=== PATIENT | male | born 1940 | race Caucasian/White ===

== ENCOUNTER 2017-03-10 09:15 | Emergency (ER) | payer MEDICARE ==
[~2017-03-10] VITALS: Ht 170.2 cm; Wt 108.0 kg
[2017-03-10 09:21] VITALS: BP 176/98; PULSE 103; RESP 16; TEMP 99.4; O2SAT 95
[2017-03-10] MEDS ORDERED: DILTIAZEM HCL 25 MG/5 ML VIAL IV ONE (10:00)
[2017-03-10] MEDS ORDERED: BUPR75TA PO (10:04)
[2017-03-10] MEDS ORDERED: RANI300T PO (10:04)
[2017-03-10] MEDS ORDERED: GLIP10TA6 PO (10:04)
[2017-03-10] MEDS ORDERED: NOVO7030P2 SQ (10:04)
[2017-03-10] MEDS ORDERED: DILT90TA PO (10:04)
[2017-03-10] MEDS ORDERED: METF1000 PO (10:04)
[2017-03-10] MEDS ORDERED: FLUT50SP EACH NARE (10:04)
[2017-03-10] MEDS ORDERED: CITA20TA4 PO (10:04)
[2017-03-10] MEDS ORDERED: TIMO0.5S30 EACH EYE (10:04)
[2017-03-10] MEDS ORDERED: LISI-515 PO (10:04)
[2017-03-10] MEDS ORDERED: ATOR20TA15 PO (10:04)
[2017-03-10] MEDS ORDERED: WARF-20 PO (10:04)
--- NOTE | 2017-03-10 10:04 | PD ---
HPI Chief Complaint: General Weakness Time Seen by Provider: 09:44 Travel History International Travel<30 days: No Contact w/Intl Traveler<30days: No Traveled to known affect area: No History of Present Illness HPI This patient is vacationing from [place]. He has general malaise and just doesn 't feel well. He has chronic A. fib on Coumadin. He forgot his medications when he came to [place]. He had them overnight delivered and he has now but he was without his medications for 2 or 3 days. He is insulin-dependent diabetic. He presents with A. fib with RVR. He had a syncopal episode a few days ago. He did not have head injury. He denies bleeding. He did have a tick bite and [place] to his left lower quadrant. The area has become red and inflamed. It was moderately severe. No alleviating factors. Symptoms are exacerbated by his medication noncompliance PFSH Past Medical History Hx Anticoagulant Therapy: Yes (WARFARIN) Cardiovascular Problems: Yes (A-FIB) Diabetes: Yes Social History Alcohol Use: No Tobacco Use: No Substance Use: No Allergies-Medications (Allergen,Severity, Reaction): Coded Allergies: No Known Allergies (Unverified , 03/10/17) Reported Meds & Prescriptions Reported Meds & Active Scripts Active Doxycycline Hyclate 100 Mg Cap 100 Mg PO BID Zofran (Ondansetron HCl) 4 Mg Tab 4 Mg PO Q6HR PRN Reported Bupropion HCl 75 Mg Tab 150 Mg PO DAILY Atorvastatin (Atorvastatin Calcium) 20 Mg Tab 20 Mg PO HS Ranitidine (Ranitidine HCl) 300 Mg Tab 300 Mg PO HS Warfarin 4 Mg Tab 4 Mg PO DAILY Timolol Opth Drops 0.5 % Soln 1 Drop EACH EYE BID Fluticasone Nasal [place] 50 Mcg/Act Naspr 50 Mcg EACH NARE BID 50 mcg/spray Novolin 70-30 Inj (Insulin Human Isoph/Insulin Regular) 1,000 Unit/10 Ml Vial 16 Units SQ BID Glipizide 10 Mg Tab 20 Mg PO BIDAC Take 30 minutes before a meal Lisinopril 20 Mg Tab 20 Mg PO DAILY Metformin (Metformin HCl) 1,000 Mg Tab 1,000 Mg PO BIDPC Diltiazem (Diltiazem HCl) 90 Mg Tab 180 Mg PO DAILY Citalopram (Citalopram Hydrobromide) 20 Mg Tab 20 Mg PO DAILY Review of Systems General / Constitutional: No: Fever Eyes: No: Visual changes HENT: Positive: Lightheadedness, No: Headaches Cardiovascular: Positive: Irregular Rhythm, Tachycardia, No: Chest Pain or Discomfort Respiratory: No: Shortness of Breath Gastrointestinal: Positive: Nausea, No: Abdominal Pain Genitourinary: No: Dysuria Musculoskeletal: Positive: Weakness, No: Pain Skin: No Rash Neurologic: Positive: Weakness, Dizziness Psychiatric: No: Depression Endocrine: No: Polydipsia Hematologic/Lymphatic: No: Easy Bruising Physical Exam Narrative GENERAL: Well-nourished, well-developed patient with general malaise and rapid A. fib . SKIN: Focused skin assessment reveals no rash and nodules. Skin is Warm and dry. HEAD: Atraumatic. Normocephalic. EYES: Pupils equal and round. No scleral icterus. No injection or drainage. ENT: No nasal bleeding or discharge. Mucous membranes pink and moist. NECK: Trachea midline. No JVD. CARDIOVASCULAR: Irregularly irregular rhythm. No murmur appreciated. Heart rate 140 RESPIRATORY: No accessory muscle use. Clear to auscultation. Breath sounds equal bilaterally. GASTROINTESTINAL: Abdomen soft, non-tender, nondistended. Hepatic and splenic margins not palpable. There is an oval erythematous thickened patch in the left lower quadrant. No fluctuance or drainage. MUSCULOSKELETAL: No obvious deformities. No clubbing. No cyanosis. No edema. NEUROLOGICAL: Awake and alert. No obvious cranial nerve deficits. Motor grossly within normal limits. Normal speech. PSYCHIATRIC: Appropriate mood and affect; insight and judgment normal. Data Data Last Documented VS Vital Signs Date Time Temp Pulse Resp B/P (MAP) Pulse Ox O2 Delivery O2 Flow Rate FiO2 03/10/17 12:06 98 20 144/85 (104) 95 03/10/17 09:21 99.4 Orders Orders Iv Access Insert/Monitor (03/10/17 09:53) Complete Blood Count With Diff (03/10/17 09:53) Basic Metabolic Panel (Bmp) (03/10/17 09:53) Prothrombin Time / Inr (Pt) (03/10/17 09:53) Chest, Single Ap (03/10/17 ) Electrocardiogram (03/10/17 ) Diltiazem Inj (Cardizem Inj) (03/10/17 10:00) Ondansetron Inj (Zofran Inj) (03/10/17 12:15) Labs Laboratory Tests Test 03/10/17 10:10 White Blood Count 6.8 TH/MM3 Red Blood Count 4.20 MIL/MM3 Hemoglobin 13.6 GM/DL Hematocrit 39.8 % Mean Corpuscular Volume 94.8 FL Mean Corpuscular Hemoglobin 32.5 PG Mean Corpuscular Hemoglobin Concent 34.3 % Red Cell Distribution Width 13.8 % Platelet Count 179 TH/MM3 Mean Platelet Volume 7.6 FL Neutrophils (%) (Auto) 74.0 % Lymphocytes (%) (Auto) 13.3 % Monocytes (%) (Auto) 12.0 % Eosinophils (%) (Auto) 0.5 % Basophils (%) (Auto) 0.2 % Neutrophils # (Auto) 5.1 TH/MM3 Lymphocytes # (Auto) 0.9 TH/MM3 Monocytes # (Auto) 0.8 TH/MM3 Eosinophils # (Auto) 0.0 TH/MM3 Basophils # (Auto) 0.0 TH/MM3 CBC Comment DIFF FINAL Differential Comment Prothrombin Time 16.6 SEC Prothromb Time International Ratio 1.5 RATIO Blood Urea Nitrogen 17 MG/DL Creatinine 1.10 MG/DL Random Glucose 222 MG/DL Calcium Level 8.3 MG/DL Sodium Level 136 MEQ/L Potassium Level 4.0 MEQ/L Chloride Level 100 MEQ/L Carbon Dioxide Level 24.9 MEQ/L Anion Gap 11 MEQ/L Estimat Glomerular Filtration Rate 65 ML/MIN [facility] Medical Decision Making Medical Screen Exam Complete: Yes Emergency Medical Condition: Yes Medical Record Reviewed: Yes Differential Diagnosis A. fib with RVR, SVT, ventricular fibrillation Narrative Course I have reviewed the patient's electronic medical record. IV placed I gave him 20 mg IV Cardizem to try for rate control I reviewed his EKG which shows A. fib with RVR Extended cardiac monitoring reveals A. fib with rates between 120 and 150 CBC is normal Metabolic profile shows mild hyperglycemia otherwise normal INR on Coumadin is 1.5 Accu-Chek 230 I reviewed his chest x-ray which is normal I rechecked the patient is doing much better. His vital signs are normal normal. Heart rate is in the 90s. I prescribed him 10 days of doxycycline for the abdominal wall cellulitis and also cover Lyme exposure Zofran prescribed Stable for outpatient follow-up Cautioned about antibiotics potentially raising the INR although his is slightly on the low side Diagnosis Primary Impression: Atrial fibrillation with RVR Additional Impression: Abdominal wall cellulitis Additional Instructions: The patient was advised to follow up with their physician and return if they worsen. Advised her primary physician here on an antibiotic which has the potential to elevate INR Finish antibiotics Med/Other Pt SpecificInfo: Prescription(s) given Scripts Doxycycline Hyclate (Doxycycline Hyclate) 100 Mg Cap 100 MG PO BID for Infection, #20 CAP 0 Refills Prov: Leo Cast MD 03/10/17 Ondansetron (Zofran) 4 Mg Tab 4 MG PO Q6HR Y for NAUSEA OR VOMITING, #12 TAB 0 Refills Prov: Leo Cast MD 03/10/17 Disposition: 01 DISCHARGE HOME Condition: Stable Leo Cast MD Mar 10, 2017 10:04
[2017-03-10 10:14] VITALS: BP 166/96; PULSE 114; RESP 20; O2SAT 96
[2017-03-10 10:16] LABS: AUTOMATED NEUTROPHIL # 5.1 TH/MM3 (1.8-7.7); BASOPHIL % 0.2 % (0.0-2.0); EOSINOPHIL % 0.5 % (0.0-4.0); HEMATOCRIT 39.8 % (39.0-51.0); HEMO FLAGS DIFF FINAL; LYMPH % 13.3 % (9.0-44.0); LYMPHOCYTE # 0.9 TH/MM3 (1.0-4.8); MEAN CELL VOLUME 94.8 FL (80.0-100.0); MEAN CORPUSCULAR HEMOGLOBIN 32.5 PG (27.0-34.0); MEAN CORPUSCULAR HGB CONC 34.3 % (32.0-36.0); PLATELET COUNT 179 TH/MM3 (150-450); RED CELL DISTRIBUTION WIDTH 13.8 % (11.6-17.2); WHITE BLOOD COUNT 6.8 TH/MM3 (4.0-11.0)
[2017-03-10 10:26] LABS: BICARBONATE 24.9 MEQ/L (21.0-32.0); INTERNATIONAL NORMALIZED RATIO 1.5 RATIO; PROTHROMBIN TIME - PATIENT 16.6 SEC (9.8-11.6)
--- NOTE | 2017-03-10 10:30 | RADRPT ---
EXAM DATE/TIME: 03/10/2017 10:15 [facility] COMPARISON: No previous studies available for comparison. INDICATIONS : Cough, short of breath, fell 2 days ago, weakness MEDICAL HISTORY : Diabetes mellitus type II. SURGICAL HISTORY : None. ENCOUNTER: Initial ACUITY: 3 days PAIN SCORE: 0/10 LOCATION: Bilateral chest FINDINGS: A single view of the chest demonstrates the lungs to be symmetrically aerated without evidence of mas s, infiltrate or effusion. The cardiomediastinal contours are unremarkable. Osseous structures are intact. Degenerative changes are noted throughout the thoracic spine. CONCLUSION: No acute cardiopulmonary disease. Ricardo Sunshine MD on March 10, 2017 at 10:27 Board Certified Radiologist. This report was verified electronically.
[2017-03-10 11:13] VITALS: BP 131/88; PULSE 95; RESP 20; O2SAT 96
[2017-03-10 12:06] VITALS: BP 144/85; PULSE 98; RESP 20; O2SAT 95
--- NOTE | 2017-03-10 12:10 | EKG ---
Date Performed: 03/10/2017 Time Performed: 10:00:43 PTAGE: 77 years EKG: ATRIAL FIBRILLATION WITH RAPID VENTRICULAR RESPONSE NONSPECIFIC ST & T-WAVE ABNORMALITY ABN ORMAL RHYTHM ECG NO PREVIOUS TRACING DOCTOR: Keven Ellis Interpretating Date/Time 03/10/2017 12:08:01
[2017-03-10] MEDS ORDERED: ONDANSETRON HCL 4 MG/2 ML VIAL IVP ONE (12:15)
[2017-03-10] MEDS ORDERED: ZOFR4TAB PO (12:16)
[2017-03-10] MEDS ORDERED: DOXY100C PO (12:16)
[2017-03-10 12:47] VITALS: BP 146/99
== END 2017-03-10 12:47 | disposition home or self-care (01) ==
LOC: PHED 09:15
DX: I48.2 Chronic atrial fibrillation (principal); L03.311 Cellulitis of abdominal wall; E11.9 Type 2 diabetes mellitus without complications; Z79.01 Long term (current) use of anticoagulants; Z79.4 Long term (current) use of insulin
CPT/HCPCS: 71010; 80048; 85025; 85610; 93005; 96374; 96375; 99285; J2405